=== PATIENT | female | born 1980 | race American Indian/Alaskan Native ===

== ENCOUNTER 2017-12-26 14:30 | Emergency (ER) | payer SELFPAY ==
[2017-12-26 14:54] VITALS: RESP 18; O2SAT 99
--- NOTE | 2017-12-26 15:51 | ED PDOC ---
HPI: Abdomen Time Seen by Provider: 12/26/17 14:56 Chief Complaint (Nursing): Abdominal Pain Chief Complaint (Provider): Abdominal Pain History Per: Patient History/Exam Limitations: no limitations Onset/Duration Of Symptoms: Days (x1) Current Symptoms Are (Timing): Still Present Location Of Pain/Discomfort: Suprapubic Additional Complaint(s): 37 year old female with no significant past medical history presents to the ED for evaluation of worsening, sharp, throbbing suprapubic abdominal pain onset yesterday. Patient reports pain worsened today after walking and sneezing. She took 600 mg Advil at 11 am with temporary relief. Pain is currently a 7 out of 10 in severity. 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 Patient denies urinary symptoms, fever, chills, nausea, vomiting, diarrhea, blood in stool, chest pain, shortness of breath, vaginal bleeding, vaginal discharge or any other medical complaints. PMD: none provided Abnormal Vaginal Bleeding: No Last Menstral Period: 12/05/17 Past Medical History Reviewed: Historical Data Vital Signs: Last Vital Signs Temp 98 F 12/26/17 19:10 Pulse 80 12/26/17 19:10 Resp 18 12/26/17 19:10 BP 123/79 12/26/17 19:10 Pulse Ox 99 12/26/17 19:10 - Medical History PMH: No Chronic Diseases - Surgical History Surgical History: (x2) - Family History Family History: States: Unknown Family Hx - Social History Current smoker - smoking cessation education provided: No Ex-Smoker (has not smoked in the last 12 months): No Alcohol: None Drugs: Denies - Home Medications Home Medications: Ambulatory Orders Medication Instructions Recorded Cephalexin [Keflex] 500 mg PO TID #30 capsule 12/26/17 Clindamycin Phosphate 1 applic TOP BID #120 ml 12/26/17 Naproxen 500 mg PO BID PRN #20 tab 12/26/17 - Allergies Allergies/Adverse Reactions: Allergies Allergy/AdvReac Type Severity Reaction Status Date / Time No Known Allergies Allergy Verified 12/26/17 14:51 Review of Systems ROS Statement: Except As Marked, All Systems Reviewed And Found Negative Constitutional: Negative for: Fever, Chills Cardiovascular: Negative for: Chest Pain Respiratory: Negative for: Shortness of Breath Gastrointestinal: Positive for: Abdominal Pain (suprapubic). Negative for: Nausea, Vomiting, Diarrhea, Hematochezia Genitourinary Female: Negative for: Vaginal Discharge, Vaginal Bleeding Physical Exam - Reviewed Nursing Documentation Reviewed: Yes Vital Signs Reviewed: Yes - Physical Exam Comments: GENERAL APPEARANCE: Patient is awake, alert, oriented x 3, uncomfortable appearing but resting comfortably. SKIN: Warm, dry; (-) cyanosis. EYES: (-) conjunctival pallor, (-) scleral icterus. ENMT: Mucous membranes moist. Airway patent, (-) stridor. NECK: Supple, FROM CHEST AND RESPIRATORY: (-) rales, (-) rhonchi, (-) wheezes; breath sounds equal bilaterally. Respirations even and nonlabored. HEART AND CARDIOVASCULAR: (-) irregularity ABDOMEN AND GI: (-) distention. Bowel sounds active x4; tenderness in suprapubic region with erythema of the mons pubis extending from left to right ASIS with erythematous macules, no drainage, no discharge, no vesicles, no crusting, (+) warmth (+) induration overlying well-healed, horizontal scar. Rest of abdomen is soft and nontender. (-) guarding, (-) rebound, (-) palpable masses, (-) CVA tenderness. EXTREMITIES: (-) deformity NEURO AND PSYCH: Mental status as above; (-) focal findings. Gait steady, speech clear. (-) facial asymmetry - Laboratory Results Result Diagrams: 12/26/17 15:55 12/26/17 15:55 Urine POC: Negative Urine dip results: Positive for: Blood (trace), Protein (30). Negative for: Leukocyte Esterase, Nitrate, Ketones, Glucose, Bilirubin - ECG O2 Sat by Pulse Oximetry: 99 (RA) Pulse Ox Interpretation: Normal Medical Decision Making Medical Decision Making: Time: 1523 Initial Impression: cellulitis rule about abdominal wall abscess Initial Plan: --Abdomen and pelvis CT --CMP --U preg --CBC with differentials --Toradol 30 mg IVP --Urine Dipstick 1540 Udip reviewed. U/A and U/C ordered. Upreg: negative 164[address] resting comfortably. Pending CT evaluation. No acute distress noted. 1800 CBC and CMP grossly unremarkable. 181 Date of service: 12/26/2017 PROCEDURE: CT Abdomen and Pelvis with Oral contrast. HISTORY: r/o abdominal wall abscess Rule out abdominal wall abscess. COMPARISON: None. TECHNIQUE: Contiguous axial images of the abdomen and pelvis performed injection of intravenous contrast material. Additional 2D sagittal and coronal reformats generated This CT exam was performed using one or more of the following dose reduction techniques: Automated exposure control, adjustment of the mA and/or kV according to patient size, and/or use of iterative reconstruction technique. Contrast dose: 95 cc Omnipaque 300 Radiation dose: Total exam DLP = 645.48 mGy-cm. FINDINGS: LOWER THORAX: Heart size borderline enlarged. No significant pericardial effusion. Tiny hiatal hernia. Mild passive/dependent type atelectasis both posterior lower lung reece. No effusion or basilar pneumothorax LIVER: Liver is enlarged measuring over 20 cm in CC dimension. Mild fatty hepatic infiltration. . The there is a large approximately 4.5 x 3.4 cm elliptical shaped lesion in the left lobe liver near the diaphragmatic dome that exhibits heterogeneous peripheral enhancement and areas of central low attenuation. Findings likely represent hemangioma. Smaller approximately 8.9 x 6.8 mm low- attenuation lesion far left lobe liver which mid is too small to characterize though may also represent hemangioma as well. Followup nonemergent triple phase CT scan liver for recommend for further evaluation. Portal and splenic veins are opacified. GALLBLADDER AND BILE DUCTS: Unremarkable. PANCREAS: Unremarkable. No mass. No ductal dilatation. SPLEEN: Unremarkable. No splenomegaly. ADRENALS: Unremarkable. KIDNEYS AND URETERS: Kidneys demonstrate symmetric nephrograms. No evidence of nephrolithiasis or hydronephrosis. . There is a small approximately 11 mm rounded low-attenuation lesion within the posterior cortex mid to lower pole left kidney that exhibits Hounsfield units equals 20. This may represent small hyperdense cyst. Renal ultrasound could confirm. . BLADDER: Urinary bladder is physiologically distended. No evidence of intraluminal urinary bladder calculi. REPRODUCTIVE: There is a large right-sided adnexal cyst which measures approximately 3.9 x 3.5 cm. Followup nonemergent pelvic ultrasound recommended for further evaluation APPENDIX: Appendix exhibits normal appearance although is midline best seen on coronal image number [id number]. BOWEL: Evaluation of the bowel is limited due to the lack of oral contrast material. Stomach is incompletely distended. Visualized loops of small bowel exhibit normal contour and caliber. No evidence of acute mechanical small bowel obstruction. Moderate to large amount of stool throughout the large bowel consistent with mild fecal retention/constipation. . No definitive evidence of mural wall thickening. PERITONEUM: There is a moderately large fat containing umbilical hernia which also contains unobstructed loops of small and large bowel. No evidence of free intraperitoneal air. There are infiltration changes seen mid subcutaneous tissues just above the level of the symphysis pubis that could represent a nonspecific cellulitis or postoperative changes given the patient's history of in the past. Clinical correlation recommended. No drainable fluid or abscess collections are identified. LYMPH NODES: Unremarkable. No enlarged lymph nodes. VASCULATURE: Unremarkable. No aortic aneurysm. BONES: Multilevel degenerative spondylosis of the lower thoracic and lumbar spine which most notably affect the facet joints at the L5-S1 and L4-L5 levels. . OTHER FINDINGS: None. IMPRESSION: Mild infiltration changes are seen within the mid anterior subcutaneous tissues just above the level of the symphysis pubis that may represent cellulitis. Clinical correlation recommended. The possibility of postoperative changes related to prior not excluded. No subcutaneous fluid or abscess collections. Hepatomegaly with mild fatty hepatic infiltration. Probable hemangioma within the left lobe liver as described. There is a 2nd smaller lesion in the far left lobe liver that is too small to characterize though could also represent hemangioma. Nonemergent triple phase CT scan of the liver is recommended for further evaluation and confirmation of these lesions. Large right adnexal cyst. Followup pelvic ultrasound recommended for further evaluation. Moderate-sized ventral wall hernia containing mesenteric fat and unobstructed bowel loops as described Keflex 500mg PO ordered. 1850 U/A (-) nitrate (-) leukocyte On re-evaluation, patient reports improvement of symptoms. On exam, patient remains AAOx3, in no acute distress. Lungs clear to auscultation, cardiac RRR, abdomen soft, non-distended, repeat neuro exam shows no focal findings. VSS, stable for discharge. Lab/Diagnostic results d/w the patient in great detail. Diagnosis of folliculitis, cellulitis of mons pubis d/w the patient. Based on history, exam and diagnostic results, plan will be for outpatient follow up. Patient instructed to follow-up with pmd / referral provided / the clinic in 1- 2 days without fail. Advised to take medication as prescribed. Return to the emergency room at any time for any new or worsening symptoms. Patient states she fully agrees with and understands discharge instructions. States that she agrees with the plan and disposition. Verbalized and repeated discharge instructions and plan. I have given the patient opportunity to ask any additional questions. ---- Scribe Attestation: Documented by Paula Rodriges, acting as a scribe for Judy Gonzalez PA-C Provider Scribe Attestation: All medical record entries made by the Scribe were at my direction and personally dictated by me. I have reviewed the chart and agree that the record accurately reflects my personal performance of the history, physical exam, medical decision making, and the department course for this patient. I have also personally directed, reviewed, and agree with the discharge instructions and disposition. Disposition - Clinical Impression Clinical Impression: Cellulitis, Folliculitis, Abdominal pain - Patient ED Disposition Is Patient to be Admitted: No Counseled Patient/Family Regarding: Studies Performed, Diagnosis, Need For Followup, Rx Given - Disposition Referrals: [facility] [Outside] Disposition: Routine/Home Disposition Time: 18:53 Condition: STABLE Additional Instructions: The emergency medical care you received today was directed towards the acute presenting symptoms. If you were prescribed any medication, please fill it and give as directed. It may take several days for your symptoms to resolve. Return to the Emergency Department at any time if symptoms worsen, do not improve, or if any other problems arise. Please contact your doctor in 2 days for re-evaluation and follow up / or call one of the physicians/clinics you have been referred to that are listed on the Patient Visit Information form that is included in your discharge packet. Bring any paperwork you were given at discharge with you along with any medications to your follow up visit. Our treatment cannot replace ongoing medical care by a primary care provider (PCP) outside of the emergency department. Prescriptions: Cephalexin [Keflex] 500 mg PO TID #30 capsule Clindamycin Phosphate 1 applic TOP BID #120 ml Naproxen 500 mg PO BID PRN #20 tab PRN Reason: Pain, Moderate (4-7) Instructions: Cellulitis and Erysipelas (Skin Infections), Folliculitis Forms: [facility] (Arabic) Print Language: KENYAN - POA Present On Arrival: None Results - Lab Results Lab Results: 12/26/17 12/26/17 12/26/17 16:37 15:55 15:55 WBC 6.3 RBC 5.25 H Hgb 9.7 L Hct 31.4 L MCV 59.8 L MCH 18.5 L MCHC 30.9 L RDW 22.0 H Plt Count 244 MPV 9.5 Neut % (Auto) 52.8 Lymph % (Auto) 39.0 [place] % (Auto) 5.9 Eos % (Auto) 1.6 Baso % (Auto) 0.7 Neut # (Auto) 3.3 Lymph # (Auto) 2.4 [place] # (Auto) 0.4 Eos # (Auto) 0.1 Baso # (Auto) 0.0 Neutrophils % (Manual) 61 Lymphocytes % (Manual) 32 Monocytes % (Manual) 5 Eosinophils % (Manual) 2 Platelet Estimate Normal Poikilocytosis (manual Slight Anisocytosis (manual) Slight Microcytosis (manual) Moderate Spherocytes Moderate Ovalocytes Slight Sodium 140 Potassium 3.5 L Chloride 107 Carbon Dioxide 23 Anion Gap 14 BUN 11 Creatinine 0.7 Est GFR ( Amer) > 60 Est GFR (Non-Af Amer) > 60 Random Glucose 92 Calcium 8.7 Total Bilirubin 0.3 AST 28 ALT 23 Alkaline Phosphatase 111 Total Protein 8.0 Albumin 4.3 Globulin 3.7 Albumin/Globulin Ratio 1.2 Urine Color Yellow Urine Clarity Cloudy Urine pH 5.0 Ur Specific [place] 1.025 Urine Protein 30 Urine Glucose (UA) Neg Urine Ketones Negative Urine Blood Small Urine Nitrate Negative Urine Bilirubin Negative Urine Urobilinogen 2.0 H Ur Leukocyte Esterase Neg Urine RBC (Auto) 6 H Urine Microscopic WBC 5 Ur Squamous Epith Cells 9 H Urine Bacteria Occ H
[2017-12-26 16:04] LABS: BASO % 0.7 % (0.0-2.0); EOS # 0.1 K/uL (0.0-0.7); EOS % 1.6 % (0.0-4.0); HEMOGLOBIN 9.7 g/dL (12.0-16.0); LYMPH # 2.4 K/uL (1.0-4.3); MEAN CORPUSCULAR HEMOGLOBIN 18.5 pg (27.0-31.0); MEAN CORPUSCULAR HGB CONC 30.9 g/dL (33.0-37.0); MEAN PLATELET VOLUME 9.5 fl (7.2-11.7); MONO # 0.4 K/uL (0.0-0.8); MONO % 5.9 % (0.0-10.0); NEUT # 3.3 K/uL (1.8-7.0); NEUT % 52.8 % (50.0-75.0); RBC 5.25 Mil/uL (3.80-5.20); WHITE BLOOD COUNT 6.3 K/uL (4.8-10.8)
[2017-12-26 16:15] LABS: ALB/GLOB RATIO 1.2 (1.0-2.1); ALBUMIN 4.3 g/dL (3.5-5.0); ALT/SGPT 23 U/L (9-52); AST/SGOT 28 U/L (14-36); BLOOD UREA NITROGEN 11 mg/dl (7-17); CALCIUM 8.7 mg/dL (8.4-10.2); GFR NON-AFRICAN AMERICAN > 60
[2017-12-26] MEDS ORDERED: Sodium Chloride 0.9% 50 ML IV ONE (16:33)
[2017-12-26] MEDS ORDERED: Iohexol 300 100 ML IJ ONE (16:33)
[2017-12-26 16:51] LABS: SQUAMOUS EPITHIAL 9 /hpf (0-5); URINE BACTERIA OCC (<OCC); URINE BILIRUBIN NEGATIVE (NEGATIVE); URINE CLARITY CLOUDY (Clear); URINE COLOR YELLOW (YELLOW); URINE GLUCOSE (UA) NEG (Normal); URINE LEUKOCYTE ESTERASE NEG Leu/uL (Negative); URINE PROTEIN 30 mg/dL (NEGATIVE)
[2017-12-26 16:54] LABS: URINE BLOOD SMALL (NEGATIVE)
[2017-12-26 17:56] LABS: EOSINOPHIL 2 % (0-7); LYMPHOCYTE 32 % (20-50); MONOCYTE 5 % (0-10); NEUTROPHIL 61 % (42-75); TOTAL CELLS COUNTED 100
[2017-12-26 17:58] LABS: ANISOCYTOSIS SLIGHT; OVALOCYTES SLIGHT; PLATELET ESTIMATE NORMAL (NORMAL); POIKILOCYTOSIS SLIGHT
[2017-12-26 17:59] LABS: MEAN CELL VOLUME 59.8 fl (81.0-99.0); PLATELET COUNT 244 K/uL (130-400)
[2017-12-26 18:00] LABS: MICROCYTOSIS MODERATE; SPHEROCYTES MODERATE
--- NOTE | 2017-12-26 18:15 | CT ---
Date of service: 12/26/2017 PROCEDURE: CT Abdomen and Pelvis with Oral contrast. HISTORY: r/o abdominal wall abscess Rule out abdominal wall abscess. COMPARISON: None. TECHNIQUE: Contiguous axial images of the abdomen and pelvis performed injection of intravenous contrast material. Additional 2D sagittal and coronal reformats generated This CT exam was performed using one or more of the following dose reduction techniques: Automated exposure control, adjustment of the mA and/or kV according to patient size, and/or use of iterative reconstruction technique. Contrast dose: 95 cc Omnipaque 300 Radiation dose: Total exam DLP = 645.48 mGy-cm. FINDINGS: LOWER THORAX: Heart size borderline enlarged. No significant pericardial effusion. Tiny hiatal hernia. Mild passive/dependent type atelectasis both posterior lower lung reece. No effusion or basilar pneumothorax LIVER: Liver is enlarged measuring over 20 cm in CC dimension. Mild fatty hepatic infiltration. . The there is a large approximately 4.5 x 3.4 cm elliptical shaped lesion in the left lobe liver near the diaphragmatic dome that exhibits heterogeneous peripheral enhancement and areas of central low attenuation. Findings likely represent hemangioma. Smaller approximately 8.9 x 6.8 mm low-attenuation lesion far left lobe liver which mid is too small to characterize though may also represent hemangioma as well. Followup nonemergent triple phase CT scan liver for recommend for further evaluation. Portal and splenic veins are opacified. GALLBLADDER AND BILE DUCTS: Unremarkable. PANCREAS: Unremarkable. No mass. No ductal dilatation. SPLEEN: Unremarkable. No splenomegaly. ADRENALS: Unremarkable. KIDNEYS AND URETERS: Kidneys demonstrate symmetric nephrograms. No evidence of nephrolithiasis or hydronephrosis. . There is a small approximately 11 mm rounded low-attenuation lesion within the posterior cortex mid to lower pole left kidney that exhibits Hounsfield units equals 20. This may represent small hyperdense cyst. Renal ultrasound could confirm. . BLADDER: Urinary bladder is physiologically distended. No evidence of intraluminal urinary bladder calculi. REPRODUCTIVE: There is a large right-sided adnexal cyst which measures approximately 3.9 x 3.5 cm. Followup nonemergent pelvic ultrasound recommended for further evaluation APPENDIX: Appendix exhibits normal appearance although is midline best seen on coronal image number [id number]. BOWEL: Evaluation of the bowel is limited due to the lack of oral contrast material. Stomach is incompletely distended. Visualized loops of small bowel exhibit normal contour and caliber. No evidence of acute mechanical small bowel obstruction. Moderate to large amount of stool throughout the large bowel consistent with mild fecal retention/constipation. . No definitive evidence of mural wall thickening. PERITONEUM: There is a moderately large fat containing umbilical hernia which also contains unobstructed loops of small and large bowel. No evidence of free intraperitoneal air. There are infiltration changes seen mid subcutaneous tissues just above the level of the symphysis pubis that could represent a nonspecific cellulitis or postoperative changes given the patient's history of in the past. Clinical correlation recommended. No drainable fluid or abscess collections are identified. LYMPH NODES: Unremarkable. No enlarged lymph nodes. VASCULATURE: Unremarkable. No aortic aneurysm. BONES: Multilevel degenerative spondylosis of the lower thoracic and lumbar spine which most notably affect the facet joints at the L5-S1 and L4-L5 levels. . OTHER FINDINGS: None. IMPRESSION: Mild infiltration changes are seen within the mid anterior subcutaneous tissues just above the level of the symphysis pubis that may represent cellulitis. Clinical correlation recommended. The possibility of postoperative changes related to prior not excluded. No subcutaneous fluid or abscess collections. Hepatomegaly with mild fatty hepatic infiltration. Probable hemangioma within the left lobe liver as described. There is a 2nd smaller lesion in the far left lobe liver that is too small to characterize though could also represent hemangioma. Nonemergent triple phase CT scan of the liver is recommended for further evaluation and confirmation of these lesions. Large right adnexal cyst. Followup pelvic ultrasound recommended for further evaluation. Moderate-sized ventral wall hernia containing mesenteric fat and unobstructed bowel loops as described
[2017-12-26 19:11] VITALS: BP 123/79; PULSE 80; TEMP 98
== END 2017-12-26 19:18 | disposition home or self-care (01) ==
LOC: H.ER 14:30
DX: L73.9 Follicular disorder, unspecified (principal); Z87.891 Personal history of nicotine dependence; L02.211 Cutaneous abscess of abdominal wall
CPT/HCPCS: 74177; 80053; 81003; 81025; 85025; 87086; 96374; 99283; J1885; Q9967